=== PATIENT | male | born 1955 | race Caucasian/White ===

== ENCOUNTER → 2024-02-11 08:09 | Outpatient (REF) | payer OTHER, SELFPAY | LOC: RAD 08:09 | PROVIDERS: ATTENDING PHYSICIAN Specialist; FAMILY PHYSICIAN Internal Medicine | DX: Z96.652 Presence of left artificial knee joint (principal); M25.462 Effusion, left knee | CPT/HCPCS: 78315; A9503 ==

== ENCOUNTER 2024-03-27 06:38 | Inpatient (IN) | payer OTHER, SELFPAY ==
--- NOTE | 2024-02-29 12:42 | CM ---
Patient is scheduled for a L TK Revision on 03/27/24. Spoke with patient's prior to surgery via telephone. Introduced role of Orthopedic Navigator. She reports that she, patient and son live in a two story home. There are two steps to enter and
a flight of steps (left ascending rail) to the second floor. There is a powder room on the first floor. He currently functions independently. He has a cane, rolling walker and raised toilet seat at home. He has never had VN services. PCP is Nelson
Farnaz.
Discussed orthopedic program and post surgical plans. Reviewed anticipated length of stay and that goal is for patient to return home at discharge. Also reviewed outpatient PT. Patient is in agreement with tentative plan and will go directly to
outpatient PT at [facility]. She will be home with patient and can assist if needed.
Patient will complete online education.
Plan: Orthopedic Navigator will remain available to assist with the care of patient and will reassess discharge needs after surgery.
[2024-03-07 08:20] VITALS: BMI 33.6
[2024-03-07 09:21] LABS: Hematocrit 42.7 % (39.0-52.0); Hemoglobin 14.2 g/dL (13.0-18.0); Mean Corp Hgb Conc. 33.3 g/dL (33.0-37.0); Mean Corpuscular Hgb 28.7 pg (27.0-31.0); Mean Corpuscular Volume 86.4 fL (80.0-94.0); Mean Platelet Volume 8.6 fL (7.4-10.4); Platelet Count 255 10^3/uL (130-400); Red Blood Cell Count 4.94 10^6/uL (4.70-6.10); Red Cell Dist. Width 13.3 % (11.5-14.5); White Blood Cell Count 4.7 10^3/uL (4.8-10.8)
[2024-03-07 09:40] LABS: ALT (SGPT) 46 U/L (0-50); AST (SGOT) 42 U/L (17-59); Albumin 4.6 g/dl (3.5-5.0); Alkaline Phosphatase 105 U/L (38-126); Blood Urea Nitrogen 23 mg/dl (9-20); Calcium 9.4 mg/dl (8.4-10.2); Carbon Dioxide 24 mmol/L (22-30); Chloride 104 mmol/L (98-107); Estimated Creatinine Clearance 95 ml/min; Glucose 145 mg/dl (70-99); Potassium 4.3 mmol/L (3.5-5.1); Sodium 136 mmol/L (135-145); Total Bilirubin 0.6 mg/dl (0.2-1.3); eGFR > 60.00
--- NOTE | 2024-03-07 10:42 | HPS.HSE ---
Family Physician
-
Family Physician: Nelson Osei
Chief Complaint
-
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
History of Present Illness
The patient is a 68 year old male presenting to for mechanical failure of his prior left total knee arthroplasty. He previously underwent an uncomplicated bilateral total knee arthroplasty in September [address] Lamonte Thacker. A few
months ago, he did notice progressively worsening left knee pain and swelling. He denied any fall or significant injury to his knee. A three phase bone scan on 02/11/2024 demonstrated an uptake of activity, especially prominent on delayed imaging
about the tibial component of the patient's left knee arthroplasty. Findings were felt to represent arthroplasty loosening. His ESR, CRP, and white blood cell count were all stable on 02/09/2024 (12, 2, and 5.1), making an infectious cause for his
left knee symptoms less likely. He was determined to be in need of a revision of his left total knee arthroplasty. He denies any current complaints today such as chest pain, shortness of breath, palpitations, nausea, vomiting, diarrhea,
lightheadedness, dizziness, cough, sore throat, or fever.
Medical History
Past Medical History
Past Medical History: Reports Other
Additional Past Medical History:
1. 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
2. Osteoarthritis, status post bilateral total knee arthroplasty, 09/2020, by Dr. Lamonte Thacker.
3. Hyperlipidemia.
4. Asthma per records, mild and intermittent.
5. Obstructive sleep apnea, compliant with CPAP (variable setting).
6. GERD.
7. History of upper GI ulcer with bleed, 2012, medication induced.
8. Fatty liver disease.
9. Nephrolithiasis.
10. Scoliosis.
11. Depression.
12. Insomnia.
13. Obesity, BMI 33.6.
14. Daily alcohol.
Past Surgical History: Reports Other
Additional Past Surgical History:
1. Bilateral total knee arthroplasty, 09/2020, by Dr. Lamonte Thacker.
2. Right knee arthroscopy.
3. Right shoulder arthroscopy, subacromial decompression, and rotator cuff repair.
4. Right carpal tunnel release.
5. Umbilical hernia repair.
6. Tonsillectomy.
7. Colonoscopy x4.
Social History
Tobacco: Non-smoker
Alcohol: Daily (He reportedly drinks 1-2 'vodka and ice teas' daily. )
Personal:
Living: Other (He lives with his and son in a 2 story home. )
Family History
Family History: Not pertinent
Allergies / Home Medications
Allergy/Medication List:
Home medications:
1. Atorvastatin 20 mg p.o. at bedtime.
2. Tylenol PM 2 tablets p.o. at bedtime as needed.
3. Advil PM 1-2 capsules p.o. at bedtime as needed.
Allergies: Pollen. No known drug allergies.
Review of Systems
-
A 12 point ROS was completed and negative except as noted: Yes
Physical Exam
Vital Signs
Blood pressure 138/89. Heart rate 78. Respirations 18. Pulse ox 95%.
Height 5 feet, 10 inches. Weight 106.2 kg. BMI 33.6.
Physical Exam
General: Well Developed, Well Nourished and No Apparent Distress
HEENT: NormoCephalic, Moist mucous membranes, Atraumatic and PERRLA
Respiratory: Clear
Cardiac: Regular Rhythm
GI: Soft, Non Tender, Non Distended and Other (Obese. )
Musculoskeletal: Other (Left knee: Mild tenderness over left tibia. Large effusion. Surgical incision healed well. Range of motion 0-120. No instability. )
Skin: Warm and Dry
Neuro: AO x 3 and Nonfocal/grossly intact
Laboratory Results
-
03/07/24 08:12
03/07/24 08:12
Laboratory Results
Total Bilirubin 0.6 mg/dl (0.2-1.3) 03/07/24 08:12
AST 42 U/L (17-59) 03/07/24 08:12
ALT 46 U/L (0-50) 03/07/24 08:12
Alkaline Phosphatase 105 U/L (38-126) 03/07/24 08:12
Hemoglobin A1c 5.6.
MRSA screen negative.
EKG 03/07/2024: Normal sinus rhythm.
Impression/Plan
-
CLEARANCES:
1. Primary medical, [facility], cleared.
Primary medical phone number: [phone].
2. Dental cleared.
IMPRESSION/PLAN:
1. 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 Lamonte Thacker on 03/27/2024. The benefits and risks of the procedure have been explained to the patient. The patient understands
these risks and wishes to proceed.
2. DVT prophylaxis: Aspirin with bilateral venous foot pumps.
3. Pain management: We will include Valium 2 mg p.o. at hour of sleep and Gabapentin 300 mg three times a day. NSAIDs will ultimately be minimized due to his previous history of GI ulcer with bleed.
Patient's home phone number: [phone].
Patient's cell phone number: [phone].
Patient's contact (Tabitha Turcios - Spouse): [phone].
[2024-03-07 12:25] LABS: Glycohemoglobin (HgbA1c) 5.6 % (4.0-5.6)
[2024-03-07 13:56] VITALS: BMI 33.6
[2024-03-27] VITALS (10 sets, daily range): BP systolic 111–130; BP diastolic 75–89; PULSE 67; O2SAT 96; BMI 32.7; BMI 33.6
[2024-03-27] MEDS: CELEBREX 200 MG PO (07:58)
[2024-03-27] MEDS: NORMOSOL-R 1000 IV ×2 (07:59→14:04)
[2024-03-27] MEDS: TYLENOL 650 MG PO ×5 (07:59→23:34)
[2024-03-27] MEDS: ROXICODONE 5 MG PO ×2 (13:26→16:34)
[2024-03-27] MEDS: NEURONTIN 300 MG PO ×3 (13:33→21:30)
--- NOTE | 2024-03-27 15:03 | W.PN.ORTHO ---
Today's Communication / Plan
-
D/c when clinically stable.
Assessment
.
Distal Motor Intact: Yes
Dressing:
STEF wrap over L knee dressing. Will reassess dressing POD 1.
Assessment:
Mechanical failure of L TKA s/p Revision of L TKA w/ Dr Thacker 03/27/24
DVT prophylaxis - ASA, b/l venous foot pumps
Asthma per records, mild and intermittent and ROMELIA, compliant with CPAP (variable setting) - monitor O2
- IS
- Resume CPAP HS
GERD and upper GI ulcer with bleed, 2012, medication induced - add daily Pepcid
- Minimize NSAIDs post-surgery
Daily alcohol - 1-2 drinks/daily reported - watch for potential s/sx of withdrawal
Osteoarthritis, status post bilateral TKA, 09/2020, by Dr. Lamonte Thacker
Hyperlipidemia
Fatty liver disease
Nephrolithiasis
Scoliosis
Depression
Insomnia
Obesity, BMI 33.6
Plan
.
Surgery / Date: Revision of L TKA w/ Dr Thacker 03/27/24
DVT Prophylaxis: Aspirin
Activity:
Out of bed.
PT/OT
Discharge Plan: Home w/ Outpatient PT
Subjective
.
.:
Patient resting comfortably in his chair after PT.
L knee pain minimal and currently well tolerated.
Denies any new significant complaints.
Vital Signs and Labs
.
Vital Signs and Labs:
Lab Results
03/07/24 08:12
03/07/24 08:12
Temp Pulse Resp BP Pulse Ox
99.2 F 74 14 130/75 97
03/27/24 07:48 03/27/24 07:48 03/27/24 07:48 03/27/24 07:48 03/27/24 07:48
Physical Exam
-
HEENT: No pallor, cyanosis, or jaundice. Throat clear.
NECK: Supple. No JVD.
RESPIRATORY: Lungs clear to auscultation.
CVS: S1, S2 normal. RRR.�
ABDOMEN: Soft, non-tender. No distension. Obese.
EXTREMITIES: Strength equal, no calf pain with palpation/dorsiflexion. Calves soft.
DRY CAN TENDER: AOx3. No focal deficits. product/industry consultant grossly intact
--- NOTE | 2024-03-27 15:15 | PTCARENOTE ---
Patient admitted from PACU post left total knee revision.Patient is alert and oriented.He rates his pain at a 1 out of 10.Neurovascular assessment is within normal limits and ongoing.The Aquacell dressing with the yola wrap is dry and intact.The
patient is in his chair with the call stewart in reach.His is at the bedside.
[2024-03-27] MEDS: ANCEF 5 IV (16:31)
[2024-03-27] MEDS: PROTONIX 40 MG PO (16:31)
[2024-03-27] MEDS: ASPIRIN 325 MG PO (17:53)
--- NOTE | 2024-03-27 18:51 | RESPNOTE ---
Patient refused CPAP. He states he feels his ROMELIA is mild and he's only here for one day.
[2024-03-27] MEDS: BACTROBAN 2% OINTMENT 1 APPLIC NASAL (20:00)
[2024-03-27] MEDS: SENOKOT 17.1999999999999993 MG PO (21:29)
[2024-03-27] MEDS: LIPITOR 20 MG PO (21:29)
[2024-03-27] MEDS: COLACE 100 MG PO (21:29)
[2024-03-27] MEDS: DECADRON 4 MG PO (21:29)
[2024-03-27] MEDS: ROXICODONE 2.5 MG PO (22:29)
[2024-03-27] MEDS: VALIUM 2 MG PO (22:33)
[2024-03-28] MEDS: ANCEF 5 IV (00:04)
[2024-03-28 03:45] VITALS: BP 122/84
[2024-03-28] MEDS: TYLENOL 650 MG PO ×2 (04:00→08:25)
[2024-03-28] MEDS: ROXICODONE 5 MG PO ×2 (04:00→09:19)
--- NOTE | 2024-03-28 06:50 | W.PN.ORTHO ---
Today's Communication / Plan
-
Patient is doing very well after revision knee replacement yesterday.
Patient to be discharged to home today.
Removed implants to be returned to patient from pathology.
Assessment
.
Distal Motor Intact: Yes
Dressing:
Clean, dry and intact.
Plan
.
Surgery / Date: Revision of L TKA w/ Dr Thacker 03/27/24
DVT Prophylaxis: Aspirin
Activity:
Out of bed.
PT/OT
Discharge Plan: Home w/ Outpatient PT
Subjective
.
.:
Patient resting comfortably.
Vital Signs and Labs
.
Vital Signs and Labs:
Lab Results
03/07/24 08:12
03/07/24 08:12
Temp Pulse Resp BP Pulse Ox
97.6 F 75 18 122/84 94
03/28/24 03:45 03/28/24 03:45 03/28/24 03:45 03/28/24 03:45 03/28/24 03:45
Non-invasive Hgb result: 14.2
[2024-03-28 07:00] VITALS: BP 111/69
[2024-03-28 08:50] VITALS: BP 111/69; BP 133/71; PULSE 88; O2SAT 96
--- NOTE | 2024-03-28 09:00 | CM ---
Addendum entered by Sariah Joe 03/28/24 11:12:
Patient did well in therapy. He has no concerns about going home and has updated his .
Original Note:
Reviewed chart and held rounds with PT, OT and nursing. Patient admitted as planned for L TK Revision. Met with patient at bedside. Confirmed information previously obtained for assessment. Also discussed discharge plans. The plan is for patient to
return home at discharge. He will have support from his when he goes home. Patient will go directly to outpatient PT and will go to [facility]. He has an appointment scheduled for Wednesday, 03/29.
Patient has a rolling walker, cane and raised toilet seat.
He will use [facility] pharmacy for discharge prescriptions.
[2024-03-28] MEDS: SENOKOT 17.1999999999999993 MG PO (09:17)
[2024-03-28] MEDS: DECADRON 4 MG PO (09:18)
[2024-03-28] MEDS: NEURONTIN 300 MG PO (09:18)
[2024-03-28] MEDS: PROTONIX 40 MG PO (09:18)
[2024-03-28] MEDS: COLACE 100 MG PO (09:19)
[2024-03-28] MEDS: ASPIRIN 325 MG PO (09:19)
[2024-03-28] MEDS: BACTROBAN 2% OINTMENT 2 APPLIC NASAL (09:19)
--- NOTE | 2024-03-28 09:19 | W.PN.ORTHO ---
Today's Communication / Plan
-
Await OT recs.
D/c later today if remaining clinically stable.
Assessment
.
Distal Motor Intact: Yes
Dressing:
STEF wrap removed this AM. Dressing w/ scant amount of old incisional bleeding but is otherwise C/D/I.
Assessment:
Mechanical failure of L TKA s/p Revision of L TKA w/ Dr Thacker 03/27/24
DVT prophylaxis - ASA, b/l venous foot pumps
Asthma per records, mild and intermittent and ROMELIA, compliant with CPAP (variable setting) - O2 stable on RA
- IS
- Resumed CPAP HS
GERD and upper GI ulcer with bleed, 2012, medication induced - added daily Pepcid
- Minimize NSAIDs post-surgery
Daily alcohol - 1-2 drinks/daily reported - no s/sx of withdrawal during admission
Osteoarthritis, status post bilateral TKA, 09/2020, by Dr. Lamonte Thacker
Hyperlipidemia
Fatty liver disease
Nephrolithiasis
Scoliosis
Depression
Insomnia
Obesity, BMI 33.6
Plan
.
Surgery / Date: Revision of L TKA w/ Dr Thacker 03/27/24
DVT Prophylaxis: Aspirin
Activity:
Out of bed.
PT/OT
Discharge Plan: Home w/ Outpatient PT
Subjective
.
.:
Patient resting comfortably in his chair this AM.
Did well w/ PT; awaiting OT eval.
L knee pain minimal w/ current pain meds.
Denies any new significant complaints.
Eager for potential d/c today.
Vital Signs and Labs
.
Vital Signs and Labs:
Lab Results
03/07/24 08:12
03/07/24 08:12
Temp Pulse Resp BP Pulse Ox
97.6 F 75 18 122/84 94
03/28/24 03:45 03/28/24 03:45 03/28/24 03:45 03/28/24 03:45 03/28/24 03:45
Non-invasive Hgb result: 14.2
Physical Exam
-
HEENT: No pallor, cyanosis, or jaundice. Throat clear.
NECK: Supple. No JVD.
RESPIRATORY: Lungs clear to auscultation.
CVS: S1, S2 normal. RRR.�
ABDOMEN: Soft, non-tender. No distension. Obese.
EXTREMITIES: Mild post-op L knee edema. Strength equal, no calf pain with palpation/dorsiflexion. Calves soft.
HELP DESK OPERATOR: AOx3. No focal deficits. prison librarian grossly intact
[2024-03-28 10:45] VITALS: BP 122/67; PULSE 81; O2SAT 96
[2024-03-28 11:00] VITALS: BP 112/63
--- NOTE | 2024-03-28 11:03 | W.DS.TRANS ---
DC Summary - Efficiency Manager
-
Discharge Instructions:
Discharge Diagnosis/Procedures Mechanical failure of L TKA s/p Revision of L
TKA w/ Dr Thacker 03/27/24
Diet Regular
Activity As tolerated,With Walker
Driving Restrictions Not until seen by your Dr
Bathing Restrictions OK to Shower
Other Services PT
Wound Care Dressing to be removed 1 week post-surgery.
[place] to be removed at 2 week follow-up
appointment with surgeon's office.
Instructions:
Stand-Alone Forms: Total Hip/Knee Replacement D/C
Changes to Home Medications: Yes
Discharge Medications:
DC Medications w/original date entered in [facility]
atorvastatin 10 mg tablet 20 mg PO HS High Cholesterol 10/17/13
mupirocin 2 % topical ointment 1 applic intranasal BID #1 tube 03/07/24
acetaminophen 500 mg tablet (Tylenol Extra Strength) 1,000 mg (2 x 500 mg) PO Q6H #60 tabs 03/28/24
aspirin 325 mg tablet 325 mg PO DAILY #30 tabs 03/28/24
dexamethasone 4 mg tablet 4 mg PO BID Anti-inflammatory #5 tabs 03/28/24
diazepam 2 mg tablet 2 mg PO HS PRN insomnia #10 tabs 03/28/24
docusate sodium 100 mg capsule 100 mg PO BID #30 caps 03/28/24
gabapentin 300 mg capsule 300 mg PO TID neuropathic pain #30 caps 03/28/24
lidocaine 4 % topical patch 2 patch topical DAILY #30 ea 03/28/24
ondansetron HCl 4 mg tablet 4 mg PO Q6H PRN nausea and vomiting #30 tabs 03/28/24
oxycodone 5 mg tablet 5 - 10 mg (1 - 2 x 5 mg) PO Q4H PRN moderate-severe pain #30 tabs 03/28/24
pantoprazole 40 mg tablet,delayed release 40 mg PO DAILY #30 tabs 03/28/24
sennosides 8.6 mg tablet (Senna Laxative) 17.2 mg (2 x 8.6 mg) PO BID #30 tabs 03/28/24
Home Medication Changes
acetaminophen 500 mg tablet (Tylenol Extra Strength) 1,000 mg (2 x 500 mg) PO Q6H #60 tabs 03/28/24
aspirin 325 mg tablet 325 mg PO DAILY #30 tabs 03/28/24
dexamethasone 4 mg tablet 4 mg PO BID Anti-inflammatory #5 tabs 03/28/24
diazepam 2 mg tablet 2 mg PO HS PRN insomnia #10 tabs 03/28/24
docusate sodium 100 mg capsule 100 mg PO BID #30 caps 03/28/24
gabapentin 300 mg capsule 300 mg PO TID neuropathic pain #30 caps 03/28/24
lidocaine 4 % topical patch 2 patch topical DAILY #30 ea 03/28/24
ondansetron HCl 4 mg tablet 4 mg PO Q6H PRN nausea and vomiting #30 tabs 03/28/24
oxycodone 5 mg tablet 5 - 10 mg (1 - 2 x 5 mg) PO Q4H PRN moderate-severe pain #30 tabs 03/28/24
pantoprazole 40 mg tablet,delayed release 40 mg PO DAILY #30 tabs 03/28/24
sennosides 8.6 mg tablet (Senna Laxative) 17.2 mg (2 x 8.6 mg) PO BID #30 tabs 03/28/24
Pending Results: No
== END 2024-03-28 13:21 | disposition home or self-care (01) | DRG 468 ==
LOC: 2 SOUTH 06:38
PROVIDERS: ADMITTING PHYSICIAN Specialist; FAMILY PHYSICIAN Internal Medicine
PROC: 0SPD0JZ Removal of Synthetic Substitute from Left Knee Joint, Open Approach (ICD-10-PCS; 2024-03-27)
PROC: 0SRD0J9 Replacement of Left Knee Joint with Synthetic Substitute, Cemented, Open Approach (ICD-10-PCS; 2024-03-27)
DX: T84.093A Other mechanical complication of internal left knee prosthesis, initial encounter (principal); Y79.2 Prosthetic and other implants, materials and accessory orthopedic devices associated with adverse incidents; Z96.651 Presence of right artificial knee joint; K21.9 Gastro-esophageal reflux disease without esophagitis; E66.9 Obesity, unspecified; Z68.33 Body mass index [BMI] 33.0-33.9, adult; E78.5 Hyperlipidemia, unspecified
CPT/HCPCS: 88300; 36415; 73560; 80053; 83036; 85027; 86850; 86900; 86901; 87070; 93005; 97110; 97116; 97162; 97165; 97530; C1713; C1762; C1776

== ENCOUNTER → 2024-09-25 16:04 | Outpatient (REF) | payer OTHER, SELFPAY ==
[2024-09-25 18:38] LABS: PSA, Total - Diagnostic 4.23 ng/ml (0.0-4.0)
== END ==
LOC: REG 16:04
PROVIDERS: ATTENDING PHYSICIAN Specialist; FAMILY PHYSICIAN Internal Medicine
DX: N20.0 Calculus of kidney (principal); N40.1 Benign prostatic hyperplasia with lower urinary tract symptoms
CPT/HCPCS: 36415; 74018; 84153

== ENCOUNTER → 2025-04-13 08:46 | Outpatient (REF) | payer OTHER, SELFPAY ==
[2025-04-13 09:22] LABS: % Basophils 1.4 % (0-2); % Eosinophils 3.3 % (0-6); % Immature Granulocytes 0.2 % (0-0.5); % Lymphocytes 20.7 % (20.5-51.1); % Monocytes 8.2 % (1.7-9.3); % Neutrophils 66.2 % (42.2-75.2); Absolute Basophils 0.1 10^3/uL (0-0.2); Absolute Eosinophils 0.2 10^3/uL (0-0.7); Absolute Lymphocytes 1.1 10^3/uL (1.2-3.4); Absolute Monocytes 0.4 10^3/uL (0.1-0.6); Absolute Neutrophils 3.4 10^3/uL (1.4-6.5); Hematocrit 45.5 % (39.0-52.0); Hemoglobin 15.1 g/dL (13.0-18.0); Mean Corp Hgb Conc. 33.2 g/dL (33.0-37.0); Mean Corpuscular Hgb 28.7 pg (27.0-31.0); Mean Corpuscular Volume 86.3 fL (80.0-94.0); Mean Platelet Volume 8.5 fL (7.4-10.4); Nucleated Red Blood Cells % 0 % (-); Platelet Count 248 10^3/uL (130-400); Red Blood Cell Count 5.27 10^6/uL (4.70-6.10); Red Cell Dist. Width 12.8 % (11.5-14.5); White Blood Cell Count 5.1 10^3/uL (4.8-10.8)
[2025-04-13 09:50] LABS: ALT (SGPT) 41 U/L (0-50); AST (SGOT) 25 U/L (17-59); Albumin 4.6 g/dl (3.5-5.0); Alkaline Phosphatase 73 U/L (38-126); Blood Urea Nitrogen 22 mg/dl (9-20); Calcium 9.5 mg/dl (8.4-10.2); Carbon Dioxide 25 mmol/L (22-30); Chloride 107 mmol/L (98-107); Glucose 108 mg/dl (70-99); HDL Cholesterol 53 mg/dl; LDL Cholesterol, Calculated 57 mg/dl; Potassium 4.8 mmol/L (3.5-5.1); Sodium 139 mmol/L (135-145); Total Bilirubin 0.8 mg/dl (0.2-1.3); Total Cholesterol 128 mg/dl (50-199); Triglyceride 91 mg/dl (10-149); Very Low Density Lipoprotein 18 mg/dl (0-30); eGFR > 60.00
[2025-04-13 10:19] LABS: TSH 0.86 uIU/ml (0.47-4.68)
[2025-04-13 10:44] LABS: Glycohemoglobin (HgbA1c) 5.6 % (4.0-5.6)
[2025-04-15 03:48] LABS: PSA Total 3.4 ng/mL (0.0-4.0)
== END ==
LOC: REG 08:46
PROVIDERS: ATTENDING PHYSICIAN Internal Medicine
DX: E66.9 Obesity, unspecified (principal); E78.5 Hyperlipidemia, unspecified; R73.01 Impaired fasting glucose; N40.0 Benign prostatic hyperplasia without lower urinary tract symptoms; R53.83 Other fatigue
CPT/HCPCS: 36415; 80053; 80061; 83036; 84153; 84154; 84443; 85025